=== PATIENT | female | born 1995 | race Caucasian/White ===

== ENCOUNTER 2016-07-09 12:26 | Emergency (ER) | payer OTHER | END 2016-07-09 13:02 | disposition left against medical advice (07) | LOC: UCCORT 12:26 | DX: H92.09 Otalgia, unspecified ear (principal); Z88.0 Allergy status to penicillin; Z53.21 Procedure and treatment not carried out due to patient leaving prior to being seen by health care provider | CPT/HCPCS: 99211; G0463 ==

== ENCOUNTER 2016-07-12 15:08 | Emergency (ER) | payer MEDICAID, OTHER ==
[2016-07-12 17:57] VITALS: BP 137/53
--- NOTE | 2016-07-12 18:27 | UC ---
UC General HPI - HPI Summary HPI Summary: Patient has had 3 days of fever, back ache, muscle ache, sore throat, noticed a lymph node behind her ear. - History of Current Complaint Chief Complaint: UCGeneralIllness Stated Complaint: congestion,cough,body aches Time Seen by Provider: 07/12/16 18:13 Hx Obtained From: Patient Onset/Duration: Sudden Onset, Lasting Days Timing: Constant Onset Severity: Moderate Current Severity: Moderate Pain Intensity: 6 Associated Signs & Symptoms: Positive: Back Pain, Cough, Fever, Headache, Weakness - Allergy/Home Medications Allergies/Adverse Reactions: Allergies Allergy/AdvReac Type Severity Reaction Status Date / Time Penicillins Allergy Swelling Verified 07/12/16 17:57 Of Face,Lips,& Throat Home Medications: Home Medications Acetaminophen [Extra Strength Acetaminop] 1,000 mg PO DAILY PRN 07/12/16 [ History Confirmed 07/12/16] Pseudoephedrine-Guaifenesin [Mucinex D 60-600 mg] 1 tab PO DAILY PRN 07/12/16 [ History Confirmed 07/12/16] PMH/Surg Hx/FS Hx/Imm Hx Previously Healthy: Yes Cardiovascular History Of: Denies: Pacemaker/ICD Respiratory History Of: Reports: Asthma - Surgical History Surgical History: Yes Surgery Procedure, Year, and Place: left ganglion cyst - Family History Known Family History: Negative: Cardiac Disease, Hypertension - Social History Alcohol Use: None Substance Use Type: None Smoking Status (MU): Never Smoked Tobacco Review of Systems Constitutional: Fever, Fatigue Skin: Negative Eyes: Negative ENT: Sore Throat, Ear Ache, Nasal Discharge Respiratory: Cough Cardiovascular: Negative Gastrointestinal: Negative Genitourinary: Negative Motor: Negative Neurovascular: Negative Musculoskeletal: Myalgia Neurological: Headache Psychological: Negative All Other Systems Reviewed And Are Negative: Yes Physical Exam Triage Information Reviewed: Yes Appearance: Well-Nourished, Ill-Appearing, Pain Distress Vital Signs: Initial Vital Signs Temp 99.5 F 07/12/16 17:51 Pulse 102 07/12/16 17:51 Resp 16 07/12/16 17:51 BP 137/53 07/12/16 17:51 Pulse Ox 100 07/12/16 17:51 Vital Signs Reviewed: Yes Eye Exam: Normal Eyes: Positive: Conjunctiva Clear ENT: Positive: Hearing grossly normal, Pharyngeal erythema, TM bulging, Tonsillar swelling Dental Exam: Normal Neck: Positive: Supple, Nontender, Enlarged Nodes @ - behind left ear Respiratory Exam: Normal Cardiovascular: Positive: No Murmur, Pulses Normal, Tachycardia Abdominal Exam: Normal Abdomen Description: Positive: Nontender, No Organomegaly, Soft Bowel Sounds: Positive: Present Musculoskeletal Exam: Normal Musculoskeletal: Positive: Strength Intact, ROM Intact, No Edema Neurological Exam: Normal Neurological: Positive: Alert, Muscle Tone Normal Psychological Exam: Normal Skin Exam: Normal Course/Dx - Course Course Of Treatment: hx obtained, exam performed, meds reviewed, rapid flu obtained, negative, given prdnisone for throat inflammation - Differential Dx - Multi-Symptom Provider Diagnoses: pharyngitis. myalgia. ear pain Discharge - Discharge Plan Condition: Stable Disposition: HOME Prescriptions: predniSONE TAB* [Deltasone TAB*] 40 mg PO DAILY #10 tab Patient Education Materials: Pharyngitis (ED) Additional Instructions: take the medication as prescribed, increase your fluid intake and get plenty of rest. follow upw ith any worsening symptoms.
== END 2016-07-12 19:10 | disposition home or self-care (01) ==
LOC: UCCORT 15:08
DX: J02.9 Acute pharyngitis, unspecified (principal); M79.1 Myalgia; H92.09 Otalgia, unspecified ear; Z88.0 Allergy status to penicillin
CPT/HCPCS: 87502; 99212; G0463

== ENCOUNTER 2018-04-11 10:12 | Emergency (ER) | payer MEDICAID, OTHER ==
[2018-04-11 11:18] VITALS: BP 113/67
--- NOTE | 2018-04-11 11:30 | UC ---
Respiratory Complaint HPI - HPI Summary HPI Summary: 22 yo female c/o of coughing for the past 5 days. She was seen by [facility] on [facility] and given mucinex which she states is not helping the cough. She states the coughing is worse at night. She has asthma and has been using her inhaler approx 3x/day. she is also c/o of headache that is worse with coughing - History of Current Complaint Chief Complaint: UCRespiratory Stated Complaint: COUGH Time Seen by Provider: 04/11/18 11:18 Hx Obtained From: Patient Hx Last Menstrual Period: 03/31/18 ?: No Onset/Duration: Sudden Onset, Lasting Days Severity Initially: Mild Severity Currently: Moderate Pain Intensity: 7 Character: Cough: Nonproductive Alleviating Factors: Bronchodilator Associated Signs And Symptoms: Positive: URI, Nasal Congestion - Risk Factors Pulmonary Embolism Risk Factors: Negative Cardiac Risk Factors: Negative Pseudomonas Risk Factors: Negative Tuberculosis Risk Factors: Negative - Allergies/Home Medications Allergies/Adverse Reactions: Allergies Allergy/AdvReac Type Severity Reaction Status Date / Time Penicillins Allergy Hives Verified 04/11/18 11:18 Home Medications: Home Medications Albuterol HFA INHALER* [Ventolin HFA Inhaler*] 2 puff INH Q6H PRN 04/11/18 [ History Confirmed 04/11/18] Guaifenesin/Dextromethorphan [Robitussin Cough+Chest Co 10-200 mg] 1 dose PO ONCE 04/11/18 [History Confirmed 04/11/18] PMH/Surg Hx/FS Hx/Imm Hx Respiratory History: Asthma - Surgical History Surgical History: Yes Surgery Procedure, Year, and Place: left ganglion cyst - Family History Known Family History: Positive: None Negative: Cardiac Disease, Hypertension - Social History Alcohol Use: None Substance Use Type: None Smoking Status (MU): Never Smoked Tobacco Review of Systems All Other Systems Reviewed And Are Negative: Yes ENT: Positive: Nasal Discharge Respiratory: Positive: Shortness Of Breath, Cough Physical Exam Triage Information Reviewed: Yes Appearance: Well-Appearing, No Pain Distress, Well-Nourished Vital Signs: Initial Vital Signs Temp 98.4 F 04/11/18 11:07 Pulse 70 04/11/18 11:07 Resp 14 04/11/18 11:07 BP 113/67 04/11/18 11:07 Pulse Ox 98 04/11/18 11:07 Vital Signs Reviewed: Yes Eyes: Positive: Conjunctiva Clear ENT: Positive: Normal ENT inspection, Hearing grossly normal, Pharynx normal, TMs normal Neck: Positive: Supple, Nontender, No Lymphadenopathy Respiratory: Positive: Chest non-tender, Lungs clear, Normal breath sounds, No respiratory distress Cardiovascular: Positive: RRR, No Murmur, Pulses Normal, Brisk Capillary Refill Abdomen Description: Positive: Nontender, No Organomegaly, Soft Bowel Sounds: Positive: Present Musculoskeletal: Positive: Strength Intact, ROM Intact, No Edema Neurological: Positive: Alert Skin Exam: Normal UC Diagnostic Evaluation - Laboratory O2 Sat by Pulse Oximetry: 98 Respiratory Course/Dx - Course Course Of Treatment: patient c/o cough for 5 days associated with wheezing/sob and night time symptoms. Start prednisone orally with breakfast as prescribed and flovent bid for 10 days. f/u with school [facility] in 1 week - Differential Dx/Diagnosis Provider Diagnoses: bronchial asthma exacerbation with nocturnal symptoms. Viral URI Discharge - Sign-Out/Discharge Documenting (check all that apply): Patient Departure All imaging exams completed and their final reports reviewed: No Studies - Discharge Plan Condition: Stable Disposition: HOME Patient Education Materials: Fluticasone (By breathing), Prednisone (By mouth) , Asthma (ED) Referrals: No Primary Care Phys,NOPCP [Primary Care Provider] - - Billing Disposition and Condition Condition: STABLE Disposition: Home
== END 2018-04-11 11:45 | disposition home or self-care (01) ==
LOC: UCCORT 10:12
DX: J45.901 Unspecified asthma with (acute) exacerbation (principal); J06.9 Acute upper respiratory infection, unspecified; Z88.0 Allergy status to penicillin
CPT/HCPCS: 99212; G0463